=== PATIENT | male | born 1995 | race Caucasian/White ===

== ENCOUNTER 2019-02-16 16:37 | Emergency (ER) | payer OTHER ==
[2019-02-16 17:15] VITALS: O2SAT 99
[2019-02-16] MEDS ORDERED: Iohexol 240 (50 ml) PO STA (18:59)
[2019-02-16] MEDS ORDERED: Iohexol 240 (50 ml) ONE (19:11)
--- NOTE | 2019-02-16 19:26 | ED PDOC ---
HPI: Abdomen Time Seen by Provider: 02/16/19 17:43 Chief Complaint (Nursing): Abdominal Pain Chief Complaint (Provider): abdominal pain History Per: Patient History/Exam Limitations: no limitations Additional Complaint(s): 23 y/o M with no significant PMH who presents with Right lower quadrant abdominal pain and diarrhea. Patient states that he returned from a trip to [place] 2 days ago amd began having loose stools 1 - 3 times per day and then had Right lower abdominal pain that has worsened today and now feels numbness/tingling going into his Right thigh. Denies N/V, fevers, chills. No prior abdominal surgery. He has not taken anything for the pain. He has been able to eat and drink normally but the pain persists. Past Medical History Reviewed: Historical Data, Nursing Documentation, Vital Signs Vital Signs: Last Vital Signs Temp 98.6 F 02/16/19 17:13 Pulse 74 02/16/19 17:13 Resp 16 02/16/19 17:13 BP 124/76 02/16/19 17:13 Pulse Ox 99 02/16/19 17:13 - Medical History PMH: No Chronic Diseases Denies: Chronic Kidney Disease - Surgical History Surgical History: No Surg Hx - Family History Family History: States: Unknown Family Hx - Allergies Allergies/Adverse Reactions: Allergies Allergy/AdvReac Type Severity Reaction Status Date / Time No Known Allergies Allergy Verified 02/16/19 17:13 Review of Systems Constitutional: Negative for: Fever, Chills Gastrointestinal: Positive for: Abdominal Pain, Diarrhea. Negative for: Nausea, Vomiting Physical Exam - Reviewed Nursing Documentation Reviewed: Yes Vital Signs Reviewed: Yes - Physical Exam Appears: Positive for: Non-toxic Skin: Positive for: Normal Color Cardiovascular/Chest: Positive for: Regular Rate, Rhythm Respiratory: Positive for: Normal Breath Sounds Gastrointestinal/Abdominal: Positive for: Soft, Tenderness (RLQ tenderness on palpation, no tenderness in other areas. ), Guarding. Negative for: Distended, Rebound Neurological/Psych: Positive for: Awake, Alert, Oriented - Laboratory Results Result Diagrams: 02/16/19 19:15 02/16/19 19:15 - ECG O2 Sat by Pulse Oximetry: 99 Medical Decision Making Medical Decision Making: CBC, CMP CT abdomen/pelvis with PO and IV contrast labs unremarkable except for BUN 25. NS 1L IV x 1 ordered. 20:00: patient endorsed to MAIKEL Tineo pending CT scan results and re-evaluation. Disposition - Clinical Impression Clinical Impression: Abdominal pain - Patient ED Disposition Is Patient to be Admitted: Transfer of Care (MAIKEL Tineo) - Disposition Disposition: Transfer of Care Disposition Time: 20:00 Condition: FAIR Forms: [employer] ([place]er)
[2019-02-16 19:31] LABS: BASO % 0.4 % (0.0-2.0); EOS # 0.1 K/uL (0.0-0.7); EOS % 1.3 % (0.0-4.0); HEMOGLOBIN 14.5 g/dL (12.0-18.0); LYMPH # 1.4 K/uL (1.0-4.3); MEAN CELL VOLUME 87.3 fl (80.0-94.0); MEAN CORPUSCULAR HEMOGLOBIN 29.4 pg (27.0-31.0); MEAN CORPUSCULAR HGB CONC 33.7 g/dL (33.0-37.0); MEAN PLATELET VOLUME 9.5 fl (7.2-11.7); MONO # 0.4 K/uL (0.0-0.8); MONO % 5.4 % (0.0-10.0); NEUT # 4.7 K/uL (1.8-7.0); NEUT % 71.9 % (50.0-75.0); NRBC % 0.1 % (0.0-0.0); RBC 4.94 Mil/uL (4.40-5.90); RED CELL DISTRIBUTION WIDTH 12.9 % (11.5-14.5); WHITE BLOOD COUNT 6.5 K/uL (4.8-10.8)
[2019-02-16 19:44] LABS: ALB/GLOB RATIO 1.4 (1.0-2.1); ALBUMIN 4.6 g/dL (3.5-5.0); ALT/SGPT 36 U/L (21-72); AST/SGOT 30 U/L (17-59); BLOOD UREA NITROGEN 25 mg/dl (9-20); CALCIUM 9.4 mg/dL (8.4-10.2); GFR NON-AFRICAN AMERICAN > 60
[2019-02-16] MEDS ORDERED: Sodium Chloride 0.9% 1,000 ML IV STA (19:59)
[2019-02-16] MEDS ORDERED: Iohexol 300 100 ML IJ ONE (21:36)
[2019-02-16] MEDS ORDERED: Sodium Chloride 0.9% 50 ML IV ONE (21:36)
--- NOTE | 2019-02-16 22:50 | ED PDOC ---
- Laboratory Results Result Diagrams: 02/16/19 19:15 02/16/19 19:15 Lab Results: Total Bilirubin 0.3 mg/dl (0.2-1.3) 02/16/19 19:15 AST 30 U/L (17-59) 02/16/19 19:15 ALT 36 U/L (21-72) 02/16/19 19:15 Alkaline Phosphatase 52 U/L (38-126) 02/16/19 19:15 Total Protein 7.9 G/DL (6.3-8.2) 02/16/19 19:15 Albumin 4.6 g/dL (3.5-5.0) 02/16/19 19:15 Globulin 3.2 gm/dL (2.2-3.9) 02/16/19 19:15 Albumin/Globulin Ratio 1.4 (1.0-2.1) 02/16/19 19:15 - ECG O2 Sat by Pulse Oximetry: 99 - Progress ED Course And Treament: case endorsed to promotion writer from [facility] pending CT and re-eval EXAM: CT Abdomen and Pelvis with IV contrast CLINICAL HISTORY: RLQ PAIN, DIARRHEA TECHNIQUE: Axial computed tomography images of the abdomen and pelvis with oral and intravenous contrast. 507.33 mGy-cm CONTRAST: With; [id number] 95ML COMPARISON: None provided. FINDINGS: LUNG BASES: The lung bases appear clear. No pleural effusions are seen. LIVER: Unremarkable. GALLBLADDER AND BILE DUCTS: The gallbladder appears within normal limits. No radioopaque gallstones are seen. No biliary ductal dilatation is evident. PANCREAS: Unremarkable. SPLEEN: Unremarkable. ADRENAL GLANDS: Unremarkable. KIDNEYS, URETERS, AND BLADDER: The kidneys appear within normal limits. There is no hydronephrosis or hydroureter. No urinary calculi are seen. STOMACH AND BOWEL: Thick walled fluid filled duodenum and loops of jejunum as well as ileum compat ible with enteritis. Thick walled fluid filled colon is noted with involvement of all segments comp atible with diffuse pancolitis. APPENDIX: No evidence of acute appendicitis on CT examination. PERITONEUM: No free fluid. No free air. LYMPH NODES: No lymphadenopathy is evident. REPRODUCTIVE: Unremarkable as visualized. VASCULATURE: No evidence of abdominal aortic aneurysm. BONES: No aggressive appearing osseous lesion. No acute osseous pathology evident. MISCELLANEOUS: Enterocolitis. Infectious and inflammatory etiologies are considered. IMPRESSION: Enterocolitis. Infectious and inflammatory etiologies are considered Patient educated on findings, discharged with rx Cipro, Flagyl, Bentyl (doses given in ED) ADvised increase fluid intake Follow up PMD/GI Return precautions given Disposition Counseled Patient/Family Regarding: Studies Performed, Diagnosis, Need For Followup, Rx Given - Clinical Impression Clinical Impression: Abdominal pain, Enterocolitis - POA Present On Arrival: None - Disposition Referrals: Jackson Shipman MD [Staff Provider] - Disposition: Routine/Home Disposition Time: 22:49 Condition: IMPROVED Prescriptions: Ciprofloxacin HCl [Cipro] 500 mg PO BID #19 tab Dicyclomine [Bentyl] 20 mg PO TID PRN #21 tab PRN Reason: Pain, Mild (1-3) metroNIDAZOLE [Flagyl] 500 mg PO TID #29 tab Instructions: Colitis
[2019-02-16 23:49] VITALS: BP 134/71; PULSE 69; RESP 20; TEMP 98.7
--- NOTE | 2019-02-17 12:56 | CT ---
PROCEDURE: CT Abdomen and Pelvis with oral and IV contrast. HISTORY: RLQ abdominal pain, diarrhea COMPARISON: None available TECHNIQUE: Contiguous axial images of the abdomen and pelvis. Oral and IV contrast was administered. Coronal and Sagittal reformats generated and reviewed. Contrast dose: 95 mL Omnipaque 300 IV Radiation dose: Total exam DLP = 507.33 mGy-cm. This CT exam was performed using one or more of the following dose reduction techniques: Automated exposure control, adjustment of the mA and/or kV according to patient size, and/or use of iterative reconstruction technique. FINDINGS: LOWER THORAX: No visible consolidation, pleural effusion, or pneumothorax. LIVER: 6 mm too small to characterize right hepatic lobe hypodensity; statistically likely cyst or hemangioma. GALLBLADDER AND BILE DUCTS: Unremarkable. PANCREAS: Unremarkable. SPLEEN: Unremarkable. ADRENALS: Unremarkable. KIDNEYS AND URETERS: The kidneys enhance symmetrically. No hydronephrosis or obstructing renal calculus. BLADDER: The urinary bladder appears unremarkable. REPRODUCTIVE: Unremarkable. APPENDIX: The appendix appears within normal limits of caliber. No secondary signs of acute appendicitis. BOWEL: The stomach is nondistended. The bowel loops appear within normal limits of caliber without evidence of intestinal obstruction. PERITONEUM: No significant free fluid. No definite free air. LYMPH NODES: No bulky lymphadenopathy identified. VASCULATURE: No aortic aneurysm. No atherosclerotic calcification or mural plaque present. BONES: No acute osseous abnormality is detected. OTHER FINDINGS: None. IMPRESSION: No acute findings identified. Too small to characterize 6 mm right hepatic lobe hypodensity; statistically likely cyst or hemangioma. Preliminary impression was provided by [employer].
== END 2019-02-16 23:16 | disposition home or self-care (01) ==
LOC: H.ER 16:37
DX: R10.9 Unspecified abdominal pain (principal); K52.9 Noninfective gastroenteritis and colitis, unspecified
CPT/HCPCS: 74177; 80053; 85025; 99284; J7030; Q9966; Q9967